=== PATIENT | male | born 1985 | race Caucasian/White ===

== ENCOUNTER 2018-08-22 08:52 | Emergency (ER) | payer BC ==
[2018-08-22 09:12] VITALS: BP 132/77
[2018-08-22] MEDS ORDERED: Fluorescein Sodium TOPICAL* 1 MG TEST STRIP OPHTHALMIC ONE (09:30)
--- NOTE | 2018-08-22 09:47 | UC ---
Throat Pain/Nasal Fermin HPI - HPI Summary HPI Summary: 32 yo male with sore throat x 3 days ? fever hurts to swallow or talk yesterday tongue felt swollen today right eye red and matted shut had Tand A as young teen - History of Current Complaint Chief Complaint: UCGeneralIllness Stated Complaint: TONGUE SWELLING,ST,COUGH,RT EYE COMPLAINT Time Seen by Provider: 08/22/18 09:24 Hx Obtained From: Patient Onset/Duration: Gradual Onset, Lasting Days Severity: Moderate Pain Intensity: 3 Pain Scale Used: 0-10 Numeric Associated Signs & Symptoms: Positive: Dysphagia, Hoarseness Related History: Prior ENT Surgery, T & A - Epiglottits Risk Factors Epiglottis Risk Factors: Negative - Allergies/Home Medications Allergies/Adverse Reactions: Allergies Allergy/AdvReac Type Severity Reaction Status Date / Time No Known Allergies Allergy Verified 08/22/18 09:08 Home Medications: Home Medications Benazepril (NF) [Lotensin (NF)] 5 mg PO QAM 08/22/18 [History Confirmed 08/22/18 ] PMH/Surg Hx/FS Hx/Imm Hx Previously Healthy: Yes Cardiovascular History: Hypertension - Surgical History Surgical History: Yes Surgery Procedure, Year, and Place: Tonsillectomy, ~2003, [place] - Family History Known Family History: Positive: Hypertension, Diabetes Negative: Cardiac Disease - Social History Alcohol Use: Rare Substance Use Type: None Smoking Status (MU): Heavy Every Day Tobacco Smoker Type: Smokeless Tobacco Amount Used/How Often: 1 can daily Length of Time of Smoking/Using Tobacco: Since Age 12 Review of Systems All Other Systems Reviewed And Are Negative: Yes Constitutional: Positive: Negative Skin: Positive: Negative Eyes: Positive: Drainage, Eye Redness ENT: Positive: Sore Throat, Sinus Congestion Respiratory: Positive: Negative Cardiovascular: Positive: Negative Gastrointestinal: Positive: Negative Genitourinary: Positive: Negative Motor: Positive: Negative Neurovascular: Positive: Negative Musculoskeletal: Positive: Negative Neurological: Positive: Negative Psychological: Positive: Negative Physical Exam Triage Information Reviewed: Yes Appearance: Well-Appearing, No Pain Distress, Well-Nourished Vital Signs: Initial Vital Signs Temp 98.2 F 08/22/18 09:05 Pulse 88 08/22/18 09:05 Resp 18 08/22/18 09:05 BP 132/77 08/22/18 09:05 Pulse Ox 98 08/22/18 09:05 Eyes: Positive: Conjunctiva Inflamed - R, Discharge - R, Other: - - flourescein stainging defect ENT: Positive: Hearing grossly normal, Pharyngeal erythema, Nasal congestion, Hoarse voice, Uvula midline - no uvular edema, no stridor. Negative: Nasal drainage, TMs normal, TM bulging, TM dull, TM red, Tonsillar swelling, Tonsillar exudate, Trismus, Muffled voice, Sinus tenderness Dental Exam: Normal Dental: Positive: Other: - no tongue lesions or swelling Neck: Positive: Supple, Nontender, Enlarged Nodes @ - bilat ant cerv lymphadenopathy Respiratory: Positive: Lungs clear, Normal breath sounds, No respiratory distress Cardiovascular: Positive: RRR, No Murmur, Pulses Normal, Brisk Capillary Refill Musculoskeletal: Positive: ROM Intact, No Edema Neurological: Positive: Alert Psychological Exam: Normal Skin Exam: Normal Throat Pain/Nasal Course/Dx - Differential Dx/Diagnosis Provider Diagnosis: Pharyngitis, Conjunctivitis, right eye Discharge - Sign-Out/Discharge Documenting (check all that apply): Patient Departure All imaging exams completed and their final reports reviewed: No Studies - Discharge Plan Condition: Stable Disposition: HOME Prescriptions: Amoxicillin PO (*) [Amoxicillin 875 MG (*)] 875 mg PO BID #20 tab Polymyx/Trimethoprim OPTH* [Polytrim OPHTH*] 1 - 2 drop RIGHT EYE QID #1 btl predniSONE [Prednisone 20 MG TAB] 60 mg PO DAILY #9 tab Patient Education Materials: Pharyngitis (ED), Conjunctivitis (ED) Referrals: Naomi Miles PA [Primary Care Provider] - 4 Days (if not better) Additional Instructions: should your tongue swell again please get seen LEATHA here or with your provider or in ER strep test (-) - Billing Disposition and Condition Condition: STABLE Disposition: Home
== END 2018-08-22 09:55 | disposition home or self-care (01) ==
LOC: UCCORT 08:52
DX: J02.9 Acute pharyngitis, unspecified (principal); H10.9 Unspecified conjunctivitis; I10 Essential (primary) hypertension; F17.290 Nicotine dependence, other tobacco product, uncomplicated
CPT/HCPCS: 87651; 99202; A9270-GY; G0463

== ENCOUNTER 2019-09-12 18:05 | Emergency (ER) | payer BC ==
--- OUTSIDE RECORDS SUMMARY | 2019-09-13 13:42 | XMS REPORT | Summary of Care ---
:1985 Author Organization [facility] Address [address] [place] [address] Care Team Providers Name Role Phone Naomi Miles Primary Care Provider Reason for Referral Diagnostic Radiology (Routine) Status Reason Specialty Diagnoses / Referred By Referred To Procedures Contact Contact Authorized Radiology Diagnoses Hereditary hemochromatosis Family history of other specified conditions Magda Jefferson, Procedures MR Abdomen without Contrast [address] [place] [address] Reason for Visit Diagnostic Radiology (Routine) Status Reason Specialty Diagnoses / Referred By Referred To Procedures Contact Contact Authorized Radiology Diagnoses Hereditary hemochromatosis Family history of other specified conditions Magda Jefferson, Procedures MR Abdomen without Contrast [address] [place] [address] Encounter Details Date Type Department Care Team Description 08/07/2019 Hospital Encounter MRI [facility] Hereditary hemochromatosis; [address] Family history of [place] [address] Allergies No Known Allergiesdocumented as of this encounter (statuses as of 08/08/2019) Medications Medication Sig Dispensed Refills Start Date End Date Status benazepril (LOTENSIN) 5 Take 5 mg by 0 Active MG tablet mouth daily documented as of this encounter (statuses as of 08/08/2019) Active Problems Problem Noted Date Acute medial meniscus tear, right, subsequent encounter 01/29/2018 Sprain of medial collateral ligament of right knee 01/01/2018 documented as of this encounter (statuses as of 08/08/2019) Immunizations Name Administration Dates Next Due Tdap 12/18/2017 documented as of this encounter Social History Tobacco Use Types Packs/Day Years Used Date Never Smoker Smokeless Tobacco: Current User Alcohol Use Drinks/Week oz/Week Comments No Sex Assigned at Date Recorded Not on file Job Start Date Occupation Industry Not on file Not on file Not on file Travel History Travel Start Travel End No recent travel history available. documented as of this encounter Last Filed Vital Signs Not on filedocumented in this encounter Plan of Treatment Name Type Priority Associated Diagnoses Date/Time MR Abdomen without Imaging Routine Hereditary 08/07/2019 4:05 PM Contrast hemochromatosis EST Family history of other specified conditions Name Type Priority Associated Diagnoses Order Schedule MR Abdomen without Imaging Routine Hereditary As Needed for 1 Contrast hemochromatosis Occurrences starting Family history of other 08/07/2019 until specified conditions 08/07/2019 Health Maintenance Due Date Last Done Comments MMR Vaccines (1 of 1 - Standard 1986 series) Varicella Vaccines (1 of 2 - 1986 2-dose childhood series) HIV Screening 1998 DTaP,Tdap,and Td Vaccines (2 - Td) 01/15/2018 12/18/2017 Influenza Vaccine 03/18/2019 Pneumococcal Vaccine: 65+ Years (1 2050 of 2 - PCV13) HIB Vaccines Aged Out No longer eligible based on patient's age to complete this topic Hepatitis A Vaccines Aged Out No longer eligible based on patient's age to complete this topic Hepatitis B Vaccines Aged Out No longer eligible based on patient's age to complete this topic IPV Vaccines Aged Out No longer eligible based on patient's age to complete this topic Pneumococcal Vaccine: Pediatrics Aged Out No longer eligible based on (0 to 5 Years) and At-Risk patient's age to complete Patients (6 to 64 Years) this topic documented as of this encounter Results Not on filedocumented in this encounter Visit Diagnoses Diagnosis Hereditary hemochromatosis Family history of other specified conditions documented in this encounter
== END 2019-09-12 19:00 | disposition home or self-care (01) ==
LOC: UCCORT 18:05
DX: M70.41 Prepatellar bursitis, right knee (principal); Y93.9 Activity, unspecified; E11.9 Type 2 diabetes mellitus without complications; I10 Essential (primary) hypertension
CPT/HCPCS: 99212; G0463